=== PATIENT | female | born 1970 | race Two or more races ===

== ENCOUNTER → 2018-06-29 | Emergency (ER) | payer OTHER ==
[~2018-06-29] VITALS: Ht 160 cm; Wt 64.4 kg
[~2018-06-29] MED LIST: LIPITOR20 MG PO; LOSARTAN-HCTZ1 EAC1 PO; NEURONTIN800 MG PO; NORVASC2.5 MG PO
== END | disposition home or self-care (01) ==
LOC: ER 06:57
DX: B02.29 Other postherpetic nervous system involvement (principal)

== ENCOUNTER 2021-09-20 06:19 | Emergency (ER) | payer OTHER ==
[~2021-09-20] VITALS: Ht 149.9 cm; Wt 64.4 kg
[2021-09-20] MEDS ORDERED: KETO10TA2 PO (11:23)
[2021-09-20] MEDS ORDERED: NORFLEX100MG PO (11:23)
== END 2021-09-20 11:29 | disposition home or self-care (01) ==
LOC: ER 06:19
DX: M54.9 Dorsalgia, unspecified (principal); I10 Essential (primary) hypertension